=== PATIENT | female | born 1990 | race Caucasian/White ===

== ENCOUNTER 2021-07-10 10:15 | Outpatient (RCR) | payer OTHER, SELFPAY ==
[2021-06-27 13:41] VITALS: BMI 47.1
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
--- NOTE | 2021-06-30 14:27 | PC.NURSE ---
Case opened in treatment team
--- NOTE | 2021-07-01 13:07 | HO.PHPPROGNO ---
Subjective Subjective Date of Service: 07/01/21 Reason For Visit: Depression Subjective Notes: Elizalde Warning Healthcare Proxy: No Guardianship: No Medical Problems Affecting Mental Status: No Interim History: Kendra is a 30 y.o. female who carries a dx of PTSD, MARLENE, and MDD recurrent. I evaluated the patient this afternoon and upon interview she reports she is still taking lexapro 10 mg daily with positive benefit, denies adverse events or side effects. She reports her mood is stabilizing, feels good today, having a normal day. On lexapro, she has noticed a lot less anxiety and feels a lot less upset everyday. Denies panic sx, says before starting lexapro she was feeling panic sx every day or every other day. Sleep has been good, feels she is getting back to a normal sleep schedule. She has been abstinent on cannabis, has noticed a lower appetite since then but says she is trying to make efforts to eat. No psychotic sx. No sx of roby endorsed. Says she feels safe, denies SI/SIB/ HI upon inquiry today. She is A&Ox4. Medication Compliance: Yes Side effects from medications: No Attending Groups: Yes Review of Systems Acute medical concerns: No Review of Systems: CVS: No c/o chest pain, palpitations, no SOB CHARGE COORDINATOR: No c/o dizziness, headache GI: No c/o Nausea, Vomiting, diarrhea, constipation or heartburn Mental Status Exam Mental Status Exam Narrative: A&O. Well groomed, good hygiene, normal body habitus. Good eye contact, attentive. No Tics or Tremors. No abnormal involuntary movements. Calm, cooperative, engaged. Non-pressured speech, spontaneous with regular rate and rhythm, normal volume and prosody. No prolonged speech latency or dysarthria. Mood is ?good,? affect is euthymic. Denies SI/SIB/HI upon inquiry. Denies A/VH or delusional thought content. Thoughts are coherent, organized. No known cognitive or memory impairment. Insight/ Judgment fair and adequate. Diagnostics Vital Signs (24Hr): Body Mass Index 47.1 Assessment & Plan Assessment & Plan (1) PTSD (post-traumatic stress disorder): Status: Acute Code(s): F43.10 - Post-traumatic stress disorder, unspecified (2) MARLENE (generalized anxiety disorder): Status: Acute Code(s): F41.1 - Generalized anxiety disorder (3) MDD (major depressive disorder), recurrent episode, severe: Qualifiers: Psychotic features: without psychotic features Qualified Code(s): F33.2 - Major depressive disorder, recurrent severe without psychotic features Status: Acute Code(s): F33.2 - Major depressive disorder, recurrent severe without psychotic features Assessment and Plan: Knedra is a 30 y.o. female who carries a dx of MARLENE, MDD recurrent, and PTSD. She presented to [facility] with sx of depression, passive SI without plan or intent, SIB (punching herself in the arm), and anxiety/ panic sx. Precipitating factors included reporting long haul covid sx, work stress. She was recently started on lexapro by PCP, titrated up to 10 mg. Plan: Continue on outpatient medication of lexapro 10 mg QD due to reported benefits. Kendra wants to continue to be abstinent from cannabis at this time, discussed risks and benefits of using concurrently with lexapro. She reports benefit on the current dose of lexapro, does not want changes. Reviewed risks and benefits of lexapro. Says she has adequate medication and refills and her PCP office will continue to prescribe it. Reason for contiued partial hosp. stay Substantial Risk for: med/psych decompensation Certification I certify that partial hospital treatment is medically necessary due to the symptoms and problems resulting from the patient's mental illness and the failure to treat the patient at the partial hospital level of care would likely result in the patient requiring inpatient psychiatric care which could not be prevented at a less intensive level of care. Greater than 50% of the session was spent on counseling and/or coordination of care Discharge Plan Discharge Attending provider: Goyo Haque Primary Care Provider: Vicki Champagne Medications: No Action escitalopram oxalate 10 mg Tablet 10 mg PO DAILY RF: 0 Referrals: Vicki Champagne, RESIDENTIAL BUILDER [Primary Care Provider] - 1 Week
--- NOTE | 2021-07-02 11:30 | PC.NURSE ---
At patient's request, I called and placed a referral for pt to attend [facility] for individual therapy and med management. I spoke to Christa. Christa said she will get back to me with an intake appt today or tomorrow.
--- NOTE | 2021-07-07 12:46 | PC.NURSE ---
I called and spoke to staff at [facility], as I have not heard back about an appt for pt. The woman I spoke with said that the client had been diagnosed by Nayeli already and that someone would reach out to her about a therapy time. She was not able to give me an appointment.
--- NOTE | 2021-07-08 13:47 | PC.NURSE ---
I spoke with pt, and she informed me that she never spoke to Nayeli at [facility] (see previous note), and that she has not heard back from [facility] about an intake. I then called [facility] and spoke to staff who said she is unable to give me an appt at this time. She transferred me to Kinsey, who suggested I write an email to central [facility] ([email or web address]) with patients full name, date of , and discharge date. I sent this email. Kinsey said someone will get back to me with appt times.
--- NOTE | 2021-07-10 15:21 | HO.PHPPROGNO ---
Subjective Subjective Date of Service: 07/10/21 Reason For Visit: Depression Subjective Notes: Elizalde Warning Guardianship: No Medical Problems Affecting Mental Status: No Interim History: Kendra reports I am doing a lot better . Reports that her symptoms of depression anxiety have lessened. Denies any type of thoughts of harm to self or others, no safety concerns. Reports I've learned so much here , and that she feels ready for discharge and return to work. She reports she is taking Lexapro 10 mg daily, which she receives from her PCP. She states that this medication and doses adequately managing her symptoms, and with the skills she learned by participating in groups in [facility], she feels hopeful for the future and ready to leave. Medication Compliance: Yes Side effects from medications: No Attending Groups: Yes Review of Systems Acute medical concerns: No Medical Review of Systems: unchanged Mental Status Exam Mental Status Exam Narrative: Well-developed, overweight female, in NAD. Appropriately groomed, appropriately dressed. Stable mood and affect. Patient Appearance: Well Grooomed and Appropriate Patient Orientation: Person, Place, Time and Situation Level of Consciousness: Awake, Appropriate and Alert Patient Behavior: Appropriate, Cooperative and Good Eye Contact Mood Description: Calm, Appropriate and Depressed (Reports still has some depression, but that symptoms have greatly lessened.) Affect Description: Calm, Appropriate and Relaxed Patient Cognition Impaired: No Ability to Follow Directions: Excellent Speech Pattern: Clear, Appropriate and Coherent Memory Description: Intact Hallucinations: None Delusions: Not Present Thought Process: Intact, Goal Oriented and Linear Thought Content: positive for Intact, positive for Goal Oriented and positive for Logical Judgement: Good Judgement and Insight: Overall judgment and insight have improved. Diagnostics Vital Signs (24Hr): Body Mass Index 47.1 Assessment & Plan Assessment & Plan (1) MDD (major depressive disorder), recurrent episode, severe: Qualifiers: Psychotic features: without psychotic features Qualified Code(s): F33.2 - Major depressive disorder, recurrent severe without psychotic features Status: Acute Code(s): F33.2 - Major depressive disorder, recurrent severe without psychotic features Assessment and Plan: Patient reports current medication Lexapro 10 mg is working to help manage her symptoms. She feels stable for discharge and to return to work next week. She feels that coping skills she has learned while participating in [facility] have better prepared her to deal with stressors at work. Denies any thoughts of harm to self or others, no safety concerns. Reports she does not require any refills at this time. (2) PTSD (post-traumatic stress disorder): Status: Acute Code(s): F43.10 - Post-traumatic stress disorder, unspecified Assessment and Plan: 1. Continue with Lexapro 10 mg daily. No refills required. 2. Patient to follow-up with outpatient providers going forward. 3. Patient stable for discharge from [facility] today. Patient educated on: diagnosis, medication risk/benefits and therapeutic strategies Informed Consent: understands Reason for contiued partial hosp. stay Substantial Risk for: stable for discharge Certification I certify that partial hospital treatment is medically necessary due to the symptoms and problems resulting from the patient's mental illness and the failure to treat the patient at the partial hospital level of care would likely result in the patient requiring inpatient psychiatric care which could not be prevented at a less intensive level of care. Greater than 50% of the session was spent on counseling and/or coordination of care Discharge Plan Discharge Attending provider: Goyo Haque Primary Care Provider: Vicki Champagne Additional Instructions: The client and staff have contacted [facility] for an appointment . They will get back her with the date and time . She was informed that if they do not call her by the middle of next week to call and let us know. Medications: No Action escitalopram oxalate 10 mg Tablet 10 mg PO DAILY RF: 0 Referrals: Vicki Champagne STATE DIRECTOR [Primary Care Provider] - 1 Week Stand Alone Forms: Patient Portal Discharge page Telehealth Telehealth Location of provider rendering services: practice address Location of patient: address on file Patient Identification confirmed using: Name, : Yes Telehealth method: video Patient verbally consented to treatment: Yes Patient verbally consented to billing insurance company: Yes Patient informed of any privacy concerns related to visit: Yes Time spent with patient (mins): 15
--- NOTE | 2021-07-11 09:41 | PC.NURSE ---
Patient discharged from program on 07/10/21. Called patient and left a message for patient yesterday to call me back to go over discharge. Patient called me back this morning. Reviewed patient discharge medication with patient. Patient reports taking as prescribed. Medication education provided. No safety issues. Patient denied SI. Patient stated that she has an upcoming appointment with her PCP who is aware of the medication she is on and they will fill the prescription if needed until her prescriber appointment with [facility]. Patient called [facility] this morning to f/u with discharge appointments. They told her she is on a wait list which should go by fast and she will get a call from them next week to set up a therapy appointment. Patient to call [facility] if having any issues.
--- NOTE | 2021-07-16 12:55 | PC.NURSE ---
Called patient and left message to f/u with appointments from [facility]. Awaiting call back from patient.
== END 2021-07-11 07:20 | disposition home or self-care (01) ==
LOC: HO.PHPA 10:15
PROVIDERS: PCP Nurse Practitioner Family; Visit Provider Psychiatry & Neurology Psychiatry
DX: F33.2 Major depressive disorder, recurrent severe without psychotic features (principal); F41.1 Generalized anxiety disorder; F43.10 Post-traumatic stress disorder, unspecified; Z79.899 Other long term (current) drug therapy
CPT/HCPCS: 90791; 90853

== ENCOUNTER 2023-05-17 10:19 | Emergency (ER) | payer SELFPAY ==
[2023-05-17 10:31] VITALS: BP 132/81; PULSE 60; RESP 14; TEMP 36.5; O2SAT 99; BMI 39.8
--- NOTE | 2023-05-17 10:37 | ED_ITS ---
HPI - General Adult General Chief complaint: General Medical Stated complaint: LEFT BREAST PAIN Time Seen by Provider: 05/17/23 10:36 Source: patient Mode of arrival: ambulatory Limitations: no limitations History of Present Illness HPI narrative: Patient is a 32 year old assigned female at with a history of PTSD, MDD, and MARLENE presenting to the emergency department today with a left breast lump. Patient states that her left breast feels more lumpy and overall different than usual. Patient states that today is her fast day of her menstrual cycle. Patient denies any nipple discharge or skin changes. Patient states that she is currently uninsured but attempting to get on [employer] and has a family history of breast cancer. Patient denies any dizziness, lightheadedness, abdominal pain, nausea, vomiting, fever, chills, blurry vision, double vision, loss of vision, chest pain, difficulty breathing, shortness of breath, back pain, night sweats, pain with urination, increased urinary frequency, increased urinary urgency, blood in her urine or stool, syncope or a near syncopal episode, recent trauma or falls, bowel incontinence, bladder incontinence, bowel retention, bladder retention, or any other complaints at this time. Onset (ago): day(s) (1) Radiation: non-radiation Severity: mild Severity scale (1-10): 1 Relieving factors: none Exacerbating factors: none Associated symptoms: denies other symptoms Treatments prior to arrival: none Related Data Home Medications Medication Instructions Recorded Confirmed escitalopram oxalate 10 mg tablet 10 mg PO DAILY 06/27/21 06/27/21 Allergies Allergy/AdvReac Type Severity Reaction Status Date / Time No Known Allergies Allergy Verified 06/27/21 13:38 [No Known Allergies*] Review of Systems Constitutional: Constitutional: Reports no additional constitutional complaints, Denies chills, Denies fever(s) and Denies night sweats Eyes: Eyes: Reports no additional eye complaints, Denies blurry vision, Denies change in vision, Denies diplopia, Denies eye discharge, Denies loss of vision and Denies eye pain ENT: Denies dizziness Cardiovascular: Cardiovascular: Reports no additional cardiovascular complaints, Denies chest pain, Denies lightheadedness, Denies Loss of Consciousness and Denies dyspnea Comments: left breast lump Respiratory: Respiratory: Reports no additional respiratory complaints and Denies dyspnea Gastrointestinal: Gastrointestinal: Reports no additional gastrointestinal complaints, Denies abdominal pain, Denies melena, Denies hematochezia, Denies change in bowel habits and Denies change in stool character Genitourinary: Genitourinary: Denies hematuria, Denies urinary frequency, Denies dysuria, Denies urinary incontinence, Denies urinary hesitancy and Denies urinary urgency Musculoskeletal: Musculoskeletal: Reports no additional musculoskeletal complaints, Denies numbness and Denies tingling Neurologic: Denies dizziness, Denies loss of vision, Denies numbness and Denies tingling Psychiatric: Psychiatric: Reports no additional psychiatric complaints Endocrine: Endocrine: Reports no additional endocrine complaints Hematologic/Lymphatic: Hematologic/Lymphatic: Reports no additional hematologic/lymphatic complaints Allergic/Immunologic: Allergic/Immunologic: Reports no additional allergic/immunologic complaints PMFSH Past Medical History Attestation statement: The following information was validated with the patient. Source: old records reviewed and nursing notes reviewed Medical History History of COVID-19 History of fracture Surgical History History of appendectomy Social History Social History Household Members: Family Household Members Other:: Lives with father, paternal grandmother and brother Patient Tobacco Use Status: Current everyday Tobacco user Tobacco use type: Smokeless Tobacco Advance Directives: No Advance Directives Information Provided: Yes Physical Exam ED Vital Signs: Vital Signs - 24 hr 05/17/23 10:31 Temperature 97.7 F Pulse Rate 60 Respiratory Rate 14 Blood Pressure 132/81 Pulse Oximetry 99 Oxygen Delivery Method Room Air BMI result Body Mass Index 39.8 Const General: cooperative, no acute distress, alert and awake Nutritional Appearance: well nourished Orientation/consciousness: patient oriented x3 Limitations: no limitations HENMT Head: Yes normal to inspection and Yes atraumatic Ears: hearing grossly normal bilaterally and external ears normal General nose exam: Normal external nose present, no nasal discharge noted and no epistaxis Face and sinus: Yes normal facial exam, No abrasion and No laceration Mouth: Normal oral and palatal mucosa present, no drooling and no muffled voice Eyes General: appearance normal, both eyes and all related structures Periorbital: periorbital findings normal Eyelids: Yes eyelids normal Conjunctivae: conjunctivae normal Pupils: Equal, round and reactive pupils present EOM: EOMs intact bilaterally Neck Neck: Yes normal visual inspection, Yes full ROM and Yes no lymphadenopathy Chest Chest palpation & inspection: normal inspection of the chest Breast/axilla palpation: other (fibrotic tissue felt along the ridges of bilateral breast, no discrete lump) Resp Effort & Inspection: normal respiratory effort and able to speak in complete sentences GI Inspection: Yes normal to inspection Neuro General: patient oriented x3 and moves all extremities Cranial nerves: Yes Equal, round and reactive pupils present Cognition (Neuro): normal cognition Motor exam (neuro): 5/5 motor strength present throughout Sensory Exam: Normal double simultaneous stimulation for sensation Coordination: [id number] test normal Extrem General: Yes normal to inspection, Yes full ROM and Yes capillary refill normal Psych Appearance: grossly normal Mental Status: mental status grossly normal Affect: normal affect Attitude: cooperative Thought process: Normal thought process present Thought content: Normal thought content present Insight: Good insight present (Psych) Medical Decision Making Medical Decision Making MDM Narrative: Patient is a 32 year old assigned female at with a history of PTSD, MARLENE, and MDD presenting to the emergency department today with a left breast lump. Patient's physical exam showed bilateral fibrotic breast tissue along the outer most ridges with no discrete masses felt. I explained my physical exam findings to the patient. I answered all questions asked by the patient. I stressed the importance of the patient taking her medication as prescribed. I stressed the importance of the patient following up with her primary care provider to have appropriate imaging of her breast done. I stressed the importance of the patient returning to the emergency department immediately if her symptoms were to worsen or if she were to develop any dizziness, shortness of breath, difficulty breathing, chest pain, blurry vision, loss of vision, nausea, vomiting, abdominal pain, fever, chills, back pain, or any other complaints. Patient verbalized agreement and understanding with this treatment plan and discharge. Differential Diagnosis Differential Diagnoses: The differential diagnosis associated with the presentation includes Breast lump Breast mass Fibrotic breast tissue Discharge Plan Discharge Clinical Impression: Fibrous breast lumps Patient Disposition: Home, Self-Care Instructions: Fibrocystic Breast Changes (ED) Additional Instructions: Follow up with your primary care provider. Return to the emergency department immediately if your symptoms worsen or if you develop any dizziness, shortness of breath, difficulty breathing, chest pain, blurry vision, loss of vision, nausea, vomiting, abdominal pain, fever, chills, back pain, or any other complaints. Prescriptions: No Action escitalopram oxalate 10 mg Tablet 10 mg PO DAILY Referrals: [facility] [Provider Group] (Call to establish and follow up with a primary care provider. If you already have a primary care provider, please follow up with them.) [facility] Primary [facility], [facility] [Provider Group] (Call to establish and follow up with a primary care provider. If you already have a primary care provider, please follow up with them.) [facility] Primary Care,Denzel [Provider Group] (Call to establish and follow up with a primary care provider. If you already have a primary care provider, please follow up with them.) Interventions: ED Discharge Assessment Last Done: 05/17/23 11:10 Discharge Date/Time: 05/17/23 11:13 Print Language: Maltese
== END 2023-05-17 11:13 | disposition home or self-care (01) ==
PROVIDERS: Emergency Provider Emergency Medicine
DX: N63.0 Unspecified lump in unspecified breast (principal); N64.4 Mastodynia; F17.200 Nicotine dependence, unspecified, uncomplicated; Z71.6 Tobacco abuse counseling
CPT/HCPCS: 99282